=== PATIENT | male | born 1990 | race Caucasian/White ===

== ENCOUNTER 2019-09-09 23:40 | Emergency (ER) | payer SELFPAY ==
[~2019-09-09] VITALS: Ht 193 cm; Wt 170.1 kg
[2019-09-09 23:53] VITALS: Ht 193 cm; Wt 170.1 kg
[2019-09-10 02:09] VITALS: BP 157/96
== END 2019-09-10 02:09 | disposition home or self-care (01) ==
LOC: ED 23:40
DX: K61.1 Rectal abscess (principal)
CPT/HCPCS: J0696; J2001; Q0162

== ENCOUNTER 2019-09-11 16:02 | Emergency (ER) | payer SELFPAY ==
[~2019-09-11] VITALS: Ht 193 cm; Wt 1696.4 kg
[2019-09-11 16:22] VITALS: Ht 193 cm; Wt 1696.4 kg
[2019-09-11 18:10] VITALS: BP 169/110
== END 2019-09-11 18:10 | disposition home or self-care (01) ==
LOC: ED 16:02
DX: K61.0 Anal abscess (principal); I10 Essential (primary) hypertension; Z48.01 Encounter for change or removal of surgical wound dressing